=== PATIENT | male | born 1960 | race Caucasian/White ===

== ENCOUNTER 2020-11-08 11:39 | Inpatient (IN) | payer MEDICARE, SELFPAY ==
[2020-11-08 11:47] VITALS: BP 144/92; PULSE 78; RESP 18; TEMP 37.1; O2SAT 97; BMI 22.5
--- NOTE | 2020-11-08 11:53 | ECG_ITS ---
[facility] Test Date: 2020-11-08 Pat Name: Jomar Espinoza Department: Room: 151 Gender: Male Director Of Contracts: : 1960 Requested By: Jose Mckeon Order Number: [id number] Mukesh MD: FANNY TOWNSEND Measurements Intervals [place] Rate: 84 P: 83 TX: 173 QRS: 27 QRSD: 101 T: 72 QT: 349 QTc: 415 Interpretive Statements SINUS RHYTHM POSSIBLE LEFT ATRIAL ENLARGEMENT [-0.1mV P WAVE IN V1/V2] POSSIBLE LEFT VENTRICULAR HYPERTROPHY [VOLTAGE CRITERIA PLUS LAE OR QRS WIDENING] POSSIBLE LATERAL MYOCARDIAL INFARCTION [30 ms Q WAVE IN I/aVL/V5/V6], OF INDETERMINATE AGE No previous ECG available for comparison Electronically Signed On 11-08-2020 20:12:21 CDT by FANNY TOWNSEND [id number]
--- NOTE | 2020-11-08 11:54 | ED_ITS ---
HPI - General Adult General: Chief complaint: Psychiatric Symptoms Stated complaint: 96 hr hold Time Seen by Provider: 11/08/20 11:49 History of Present Illness: HPI narrative: This patient is a 59-year-old male who presents to the emergency department from [facility] with paperwork from the court for a 96-hour hold. Reportedly this [place] [address] [place] police officers when he was walking along the side [place] [address] stating that he hoped to be get run over by vehicle. Stated that he needed to go to psychological facility before he does something bad to himself or someone else. Stated he did not want to live anymore. Is been noted that he has been in the previously long term system in [facility] at that time he attempted to hang himself with a bed sheet. He stated multiple times he did not want to live anymore. Patient states that he has a history of rapid cycling bipolar disorder. Admits that he uses marijuana daily. States he is homeless. Patient states he does not want to live anymore and that he will follow through on his threats. 96-hour hold paperwork has been signed. And was presented to the emergency department here for medical screening exam. During his arrest with the officers patient tried to have the police inspector shoot him upon arrest he also attempted to hang himself as stated above. Will do medical evaluation treat as needed. Onset (ago): day(s) Associated symptoms: Deny chest pain, dyspnea, headache(s), nausea, rash, palpitations or vomiting Review of Systems General: Reports: 10 or more systems reviewed and unremarkable except in HPI and below Const: Denies: fever(s), chills, body aches or fatigue Eyes: Denies: change in vision or blurry vision ENMT: Denies: throat pain, hoarseness or mouth pain Card: Denies: chest pain, palpitations, irregular heart rhythm, edema, swelling of feet/ankles or lightheadedness Resp: Denies: dyspnea, productive cough, non-productive cough, wheezing or pain on inspiration GI: Denies: abdominal pain, nausea or vomiting : Denies: flank pain, dysuria, urinary frequency, urinary urgency or urinary hesitancy Musc: Denies: neck pain, back pain, extremity pain, extremity swelling, joint pain, joint swelling, joint redness, joint warmth or limited range of motion Skin/Breast: Denies: rash, pruritus, erythema or skin tenderness Neuro: Denies: headache(s), numbness in extremities or weakness in extremities Psych: Reports: depression and suicidal ideation; Denies: anxiety Physical Exam Const: COMMON NORMALS: no acute distress, average body habitus, patient oriented x3, no limitations, healthy appearing, alert and well nourished HENMT: COMMON NORMALS: normocephalic, atraumatic, hearing grossly normal bilaterally, external ears normal, EAC's normal, TM's normal bilaterally, Normal external nose present, Normal nasal mucous membranes and turbinates present, moist oral mucous membranes, oropharynx normal, dentition normal and gingiva normal HEAD & SCALP: normocephalic and atraumatic NOSE: Normal external no se present and Normal nasal mucous membranes and turbinates present EXTERNAL EAR: Yes external ears normal EXTERNAL AUDITORY CANAL: EAC's normal TYMPANIC MEMBRANE: TM's normal bilaterally Neck/C-Spine: COMMON NORMALS: full ROM, no lymphadenopathy, supple, no meningeal signs, no JVD, Thyroid normal and No carotid bruits THYROID: Thyroid normal Chest: COMMONS NORMALS: normal inspection of the chest, normal palpation of entire chest wall, normal inspection of the breasts and normal palpation of the breasts Breast/axilla inspection: Yes normal inspection of the breasts BREAST/AXILLA PALPATION: Yes normal palpation of the breasts Resp: COMMON NORMALS: normal respiratory effort, No retractions, No use of accessory muscles, clear to auscultation bilaterally and percussion normal AUSCULTATION: clear to auscultation bilaterally PERCUSSION: percussion normal Cardio: COMMON NORMALS: no JVD, regular rate, regular rhythm, S1 normal heart sound present, S2 normal heart sound present, No gallops present (Cardio), No clicks present (Cardio), No murmurs present (Cardio), No rub (Cardio) and Perip heral pulses 2+ throughout RATE: regular rate RHYTHM: regular rhythm HEART SOUNDS: S1 normal heart sound present and S2 normal heart sound present PERIPHERAL PULSES: Peripheral pulses 2+ throughout GI: COMMON NORMALS: Normal to inspection, nondistended, normoactive bowel sounds present, Soft to palpation, non-tender, No hepatosplenomegaly present, no masses and no bruits PALPATION: Yes Soft to palpation and Yes No hepatosplenomegaly present : COMMON NORMALS: Yes no CVA tenderness BLADDER/KIDNEY EXAM: Yes no CVA tenderness Back/Pelvis: COMMON NORMALS: no CVA tenderness, thoracic and lumbar spine normal to inspection, no thoracic nor lumbar tenderness, thoraco-lumbar ROM normal and straight leg raise negative bilaterally Extremity: COMMON NORMALS: normal to inspection, full ROM, capillary refill normal, no joint enlargement, no clubbing, cyanosis or edema, no calf tenderness and no pedal edema Neuro: COMMON NORMALS: patient oriented x3 SENSORIUM/ORIENTATION: Yes alert MENINGEAL SIGNS: Yes no meningeal signs Psych: COMMON NORMALS: mental status grossly normal THOUGHT CONTENT: Yes Suicidality present Course Reevaluation(s): Reevaluation #1: Patient complained of abdominal cramping apparently nursing staff is found Pepto-Bismol in his belongings patient missed that he had drank half a bottle. Will do medical evaluation treat as needed Time: 12:26 Consultations: Consultation #1: I did discuss at great length with Dr. Romero psychiatry he is accepted this patient for admission. Time: 12:42 Vital Signs: Vital signs: Vital Signs Temperature 98.7 F 11/08/20 11:47 Pulse Rate 78 11/08/20 11:47 Respiratory Rate 18 11/08/20 11:47 Blood Pressure 144/92 11/08/20 11:47 Pulse Oximetry 97 11/08/20 11:47 MDM - General Adult MDM Narrative: Medical decision making narrative: This patient is a 59-year-old male who presents to the emergency department from [facility] with paperwork from the court for a 96-hour hold. Reportedly this [place] [address] [place] [address] officers when he was walking along the side [place] [address] stating that he hoped to be get run over by vehicle. Stated that he needed to go to psychological facility before he does something bad to himself or someone else. Stated he did not want to live anymore. Is been noted that he has been in the previously long term system in [facility] at that time he attempted to hang himself with a bed sheet. He stated multiple times he did not want to live anymore. Patient states that he has a history of rapid cycling bipolar disorder. Admits that he uses marijuana daily. States he is homeless. Patient states he does not want to live anymore and that he will follow through on his threats. 96-hour hold paperwork has been signed. And was presented to the emergency department here for medical screening exam. During his arrest with the officers patient tried to have the police inspector shoot him upon arrest he also attempted to hang himself as stated above. I did discuss at great length with Dr. Romero psychiatry he is accepted this patient for admission. Medical Records: Attestation: I reviewed the patient's medical records. Lab Data: Attestation: I reviewed the patient's lab results. Labs: Lab Results 11/08/20 11/08/20 Range/Units 12:25 12:25 WBC 10.4 H (4.0-10.0) 10^3/ uL RBC 4.88 (4.1-5.3) 10^6/u L Hgb 14.4 (11.7-16.6) g/dL Hct 42.3 (42.0-52.0) % MCV 86.7 (80-94) fL MCH 29.5 (28.0-34.0) pg MCHC 34.0 (30.0-36.0) g/dL RDW 12.9 (12.1-15.1) % Plt Count 270 (130-400) 10^3/c mm MPV 11.3 H (7.4-10.4) fL Neut % (Auto) 77.9 % Lymph % (Auto) 13.8 % [place] % (Auto) 7.7 % Eos % (Auto) 0.2 % Baso % (Auto) 0.2 % Neut # (Auto) 8.06 H (1.8-7.7) 10^3/u L Lymph # (Auto) 1.4 (0.8-4.8) 10^3/u L [place] # (Auto) 0.8 (0.2-0.9) 10^3/u L Eos # (Auto) 0.0 (0.0-0.8) 10^3/u L Baso # (Auto) 0.0 (0.0-0.1) 10^3/u L Nucleated RBC % (a uto) 0 % Nucleated RBCs # 0.0 /100WBC Sodium 141 (136-145) mmol/L Potassium 4.3 (3.5-5.1) mmol/L Chloride 104 (98-107) mmol/L Carbon Dioxide 20 L (22-29) mmol/L Anion Gap 21.3 H (5-19) BUN 20 (6-20) mg/dL Creatinine 0.7 (0.7-1.2) mg/dL GFR Calculation 115.8 (90-130) mL/min Glucose 117 H (65-115) mg/dL Calculated Osmolal ity 296 H (285-295) mOsm/k g Calcium 9.6 (8.5-10.5) mg/dL Total Bilirubin 0.4 (0.15-1.2) mg/dL AST 40 (0-40) U/L ALT 19 (0-41) U/L Alkaline Phosphata se 101 (40-130) IU/L Total Protein 7.4 (6.6-8.7) g/dL Albumin 5.2 (3.5-5.2) g/dL Globulin 2.2 (1.3-4.6) g/dL Salicylates 8.9 (3-10) mg/dL Acetaminophen < 5.0 L (10-30) ug/mL Ethyl Alcohol < 10 (0-10) mg/dL Imaging Data^: KUB: Attestation: I personally reviewed and interpreted this imaging study as follows: Radiologist's impression: IMPRESSION: 1. No acute GI abnormalities. 2. Multiple metallic bart are seen in the central abdomen. 3. Metallic surgical clips right upper quadrant and left epigastric region 4. Metallic arthroplasty left hip in good position EKG Data^: EKG 1: Attestation: I personally reviewed and interpreted this EKG as follows: EKG interpretation date: 11/08/20 EKG interpretation time: 12:18 Interpretation: EKG has quite a bit of artifact due to the patient not wanting to sit still. Otherwise sinus rhythm heart rate 84. Computer generated interpretation: Abdomen X-Ray 11/08/20 13:17 IMPRESSION: 1. No acute GI abnormalities. 2. Multiple metallic bart are seen in the central abdomen. 3. Metallic surgical clips right upper quadrant and left epigastric region 4. Metallic arthroplasty left hip in good position Discharge Plan Discharge Patient Disposition: Admitted As Inpatient Admit Provider: Teresa Romero Clinical Impression: Suicidal ideation Condition: Stable Coding Level of Care Code ED Senior Manager for Chg Fwd Exam Comprehensive
[2020-11-08 12:34] LABS: Basophils % 0.2 %; Eosinophils % 0.2 %; Hematocrit 42.3 % (42.0-52.0); Hemoglobin 14.4 g/dL (11.7-16.6); Lymphocytes # 1.4 10^3/uL (0.8-4.8); Lymphocytes % 13.8 %; Mean Corpuscular Hemoglobin 29.5 pg (28.0-34.0); Mean Corpuscular Volume 86.7 fL (80-94); Mean Platelet Volume 11.3 fL (7.4-10.4); Monocytes # 0.8 10^3/uL (0.2-0.9); Monocytes % 7.7 %; Neutrophils # 8.06 10^3/uL (1.8-7.7); Neutrophils % 77.9 %; Nucleated Red Blood Cells % 0 %; Platelet Count 270 10^3/cmm (130-400); Red Blood Count 4.88 10^6/uL (4.1-5.3); Red Cell Distribution Width 12.9 % (12.1-15.1); White Blood Count 10.4 10^3/uL (4.0-10.0)
[2020-11-08 12:49] LABS: Alanine Aminotransferase 19 U/L (0-41); Albumin Level 5.2 g/dL (3.5-5.2); Alkaline Phosphatase 101 IU/L (40-130); Anion Gap 21.3 (5-19); Aspartate Amino Transferase 40 U/L (0-40); Blood Urea Nitrogen 20 mg/dL (6-20); Calcium 9.6 mg/dL (8.5-10.5); Carbon Dioxide 20 mmol/L (22-29); Chloride 104 mmol/L (98-107); Globulin 2.2 g/dL (1.3-4.6); Glomerular Filtration Rate 115.8 mL/min (90-130); Glucose 117 mg/dL (65-115); Osmolality Calculated 296 mOsm/kg (285-295); Potassium 4.3 mmol/L (3.5-5.1); Salicylate 8.9 mg/dL (3-10); Sodium 141 mmol/L (136-145); Total Bilirubin 0.4 mg/dL (0.15-1.2); Total Protein 7.4 g/dL (6.6-8.7)
[2020-11-08 12:50] LABS: Acetaminophen < 5.0 ug/mL (10-30); Alcohol Level < 10 mg/dL (0-10)
--- NOTE | 2020-11-08 13:17 | XRR_ITS ---
PROCEDURE INFORMATION: Exam: XR Abdomen Exam date and time: 11/08/2020 1:17 PM Age: 59 years old Clinical indication: Abdominal pain; Generalized; Additional info: Abd pain TECHNIQUE: Imaging protocol: XR of the abdomen. Views: 2 Views. Upright and supine views. COMPARISON: No relevant prior studies available. FINDINGS: Gastrointestinal tract: Normal. No bowel dilation. Numerous metallic bart are seen in the central portion of the abdomen in a somewhat circumscribed pattern. Intraperitoneal space: There is metallic surgical clips in the right upper quadrant and in the epigastric region. Bones/joints: Metallic arthroplasty is seen in the left hip in good position. Soft tissues: Of larger circumscribed metallic densities seen in the lower chest bilaterally Other findings: Comparison to prior examination similar findings is seen XR/XR abdomen min 2V [id number] IMPRESSION: 1. No acute GI abnormalities. 2. Multiple metallic bart are seen in the central abdomen. 3. Metallic surgical clips right upper quadrant and left epigastric region 4. Metallic arthroplasty left hip in good position
[2020-11-08 14:13] LABS: Urine Appearance Clear (CLEAR); Urine Color Yellow (Yellow)
[2020-11-08 14:14] LABS: Add Urine Microscopic? YES; Bacteria Urine 1+ /hpf; Bilirubin Urine 1+ (Negative); Blood Urine 3+ (Negative); Glucose Urine UA Norm (Normal); Ketones Urine 2+ (Negative); Leukocyte Esterase Urine Negative (Negative); Mucus Urine 4+ /hpf; Nitrate Urine Negative (Negative); Protein Urine 1+ (Negative); Urobilinogen Urine Norm (Negative); pH Urine 5 (5-7)
[2020-11-08 14:16] LABS: Add Urine Culture? No; RBC Urine 0-4 /hpf (0-2); Squamous Epithelial Cell Urine 0-4 /hpf (0-5); WBC Urine 0-4 /hpf (0-5)
[2020-11-08 14:16] LABS: Amphetamines Screen Urine Negative (Negative); Barbiturates Screen Urine Negative (Negative); Benzodiazepines Screen Urine Positive (Negative); Cocaine Screen Urine Negative (Negative); Opiate Screen Urine Negative (Negative); PCP Screen Urine Negative (Negative); THC Screen Urine Positive (Negative)
[2020-11-08 14:33] VITALS: BP 138/82; PULSE 76; RESP 16; TEMP 36.6; O2SAT 94
[2020-11-08 14:39] VITALS: RESP 18; TEMP 37.1; O2SAT 97
--- NOTE | 2020-11-08 15:30 | PC.NURSE ---
Admit note Patient is a 59 year old male that presents to the ER for a 96 hour hold, Per affidavit patient was found walking [place] [address] stating that he was hoping someone would run him over, patient then stated that if police officers were going to arrest him that they would have to shoot him. Patient was arrested and taken to the [facility], while in usp patient attempted to hang himself with a bed sheet. Patient was brought here for evaluation. During admission patient is sitting on the bed, rocking back and forth holding his abdomen. Patient stated that he has been having severe abdominal pain and diarrhea today. Per ER staff patient had a empty bottle of pepto bismul on his bed and they believe he may have ingested the whole bottle. Patient is pleasant with nursing staff with nursing staff. Patient denies drug use but stated that he smokes pot.
--- NOTE | 2020-11-08 15:41 | PC.NURSE ---
Patient has two nipple rings in place, along with a large ring in his penis.
[2020-11-08] MEDS: ondansetron 4 MG Tablet PO (16:09)
[2020-11-08] MEDS: loperamide 2 mg Capsule PO (16:10)
--- NOTE | 2020-11-08 17:33 | PC.NURSE ---
Patient Hemant's number [phone]
[2020-11-08] MEDS: citalopram 20 mg Tablet 10 MG PO (18:05)
--- NOTE | 2020-11-08 18:11 | PC.NURSE ---
Patient very reluctant when given the new medication that was prescribed. Patient voiced that antidepressants do not work for patients that Bipolar 1. Patient explained that changing the medication on him and putting him of citalopram instead of his other medication is not safe because the medication does not work together. RN explained to the patient that the provider would not precribe him something that was unsafe for him to take. Patient also stated that he would not take another dose until he speaks with the provider. Patient stated I am on medications that work for me and that I will not change them and if you change them here I am going to go back to my other medications at home . Patient is currently speaking with his concerning the medication changes and is frustrated that the provider changed them. Patient also stated that they reason he had a manic episode is due to the fact that he has not been taking his medications as he is supposed to. Patient stopped taking the medication because he thought he was doing better and stopped his medication.
[2020-11-08] MEDS: ibuprofen 800 mg tablet PO (20:02)
[2020-11-08 20:53] VITALS: BP 170/83; PULSE 90; RESP 15; TEMP 36.4; O2SAT 98
--- NOTE | 2020-11-08 22:00 | PC.NURSE ---
Home Medications Called Significant other, Hemant at [phone], stated has been seeing Dr. Boyle and Dr. Elena. Equatro, Valium, Seroquel prescribed by Dr. Elena, and filled at [facility] in [place] All other home medications are filled at [facility] Medications Equatro 400mg PO BID-must have name brand, the name generic doesn't work, Valium 5-10mg po, unsure of frequency. EC Aspirin Famatodine 20mg PO daily b12 chewable Lizbeth 180mg PO daily Seroguel 125mg PO at bedtime
--- NOTE | 2020-11-08 22:20 | PC.NURSE ---
Home Medications Called Significant other, Hemant at [phone]
[2020-11-08] MEDS: hyDROXYzine 25 mg Capsule 50 MG PO (23:43)
[2020-11-08] MEDS: trazodone 50 mg Tablet PO (23:43)
[2020-11-08] MEDS: acetaminophen 325 mg Tablet 650 MG PO (23:43)
--- NOTE | 2020-11-08 23:51 | PC.NURSE ---
PRN's Vistaril 50mg PO- given for anxiety tylenol 650mg PO-given for headache rated 4-5, on 1-10 pain scale trazodone 50mg PO- for sleep, pt is anxious and is used to taking meds to sleep
[2020-11-09] MEDS: ibuprofen 800 mg tablet PO ×3 (04:48→21:43)
--- NOTE | 2020-11-09 05:27 | PC.NURSE ---
PM Assessment Pt is nervous about taking Celexa because a previous psychiatrist told him that he should not take anti-psychotic meds. He claims his meds have worked for him the last 4 years and would like them restarted here. Sees Dr Elena and Dr Boyle in [place]. Stated he has a daughter 33, son 32, one and the 14th his son would have been 24 that committed suicide, 20 yr old son, and a 18 year old son that is leaving for the . He is proud of this son joining [employer] to be an MP. Spoke of his , and her sudden . Pt states, Im just stressed out. Pt speaks highly of Hemant, his significant other, and how well she cares for him. They have been together since 2014. He says he has prior diagnosis of Bipolar type 1. Pt is nervous, anxious, and pacing. Offered Vistaril/ Trazodone. Medication is reconciled. Pt feels like his kids are older and now they do not need him. Pt uses walking as a coping mechanism.
--- NOTE | 2020-11-09 05:45 | PC.NURSE ---
Trazodone hangover pt refuses to take it anymore. Left pt with a headache and he does not want to take it anymore.
[2020-11-09 06:00] VITALS: BP 133/88; PULSE 71; RESP 17; TEMP 36; O2SAT 95
[2020-11-09] MEDS: citalopram 20 mg Tablet PO (09:00)
[2020-11-09] MEDS: aspirin 81 mg EC Tablet PO (09:12)
[2020-11-09] MEDS: fexofenadine 60 mg Tablet 180 MG PO (09:12)
[2020-11-09] MEDS: famotidine 20 mg Tablet PO (09:12)
--- NOTE | 2020-11-09 09:49 | P.HP_ITS ---
Providers/Chief Complaint Admitting Physician: Teresa Romero DO Chief Complaint: 96 hr hold HPI NPU History of Present Illness Jomar Espinoza is a 59 year old male reports longstanding history of bipolar d isorder and states that he had stopped taking his medication for several days leading to an event in which he was acting bizarrely and was endorsing suicidal ideation and demonstrating suicidal behavior to include attempting to hang himself while in a long term. Patient reports that he has a past history of rapid cycling bipolar disorder which has been stable on his current home medication to include carbamazepine 400 mg twice daily. He currently denies any manic symptoms. Patient reports past depressive symptoms but currently denies any depressive symptoms, denies any suicidal ideation or thoughts about self-harm and reports no past history of suicide attempts. Patient denies any psychotic symptoms. Psychiatric review of systems is otherwise negative. Patient denies use of any other illicit substances but states that he does a 1 hitter of marijuana 3 times daily before work, at lunch, and after work for pain. Patient states that he sees a psychiatrist every 3 months and is due for his next psychiatric appointment sometime this month. Patient reports living with his and working at a [employer]. Review of Systems General: Reports: 10 or more systems reviewed and unremarkable except in HPI and below Meds NPU Home Medications Medication Instructions Recorded Confirmed Last Taken Type aspirin 81 mg PO DAILY 11/08/20 11/08/20 11/07/20 09:00 History carbamazepine (mood stabiliz) 400 mg PO BID 11/08/20 11/08/20 11/07/20 09:00 History [Equetro] diazepam [Valium] 5 mg PO BID PRN 11/08/20 11/08/20 Unknown History famotidine 20 mg PO DAILY 11/08/20 11/08/20 11/07/20 09:00 History fexofenadine 180 mg PO DAILY 11/08/20 11/08/20 11/07/20 09:00 History ibuprofen 800 mg PO TID PRN 11/08/20 11/08/20 Unknown History sumatriptan succinate 100 mg PO Q2H PRN 11/08/20 11/08/20 Unknown History quetiapine [Seroquel] 125 mg PO BEDTIME 11/09/20 11/09/20 Unknown History Allergies Allergy/AdvReac Type Severity Reaction Status Date / Time No Known Allergies Allergy Verified 11/08/20 15:42 [facility] NPU Other Psychiatric History: Other Psychiatric History: Reports longstanding psychiatric issues, currently stabilized on his current regimen, sees kevin pickard every 3 months in [place] Reports last psychiatric hospitalization was 6 years ago Denies any history of suicide attempts or self-harm behavior Mental Status Exam MSE Comments: Appears significantly older than stated age, multiple tattoos on exposed skin on his neck and arms, appropriately dressed and groomed, calm, cooperative, good eye contact Psychomotor activity is neither increased nor decreased, no agitation Speech is low volume, normal rate, spontaneous, fair articulation, not pressured I feel okay, full range of affect, not labile Alert, oriented to person, place, time, situation Memory and concentration appear to be intact per interview Intellectual functioning appears to be average based on vocabulary, interview Thought process, linear, no flight of ideas, no looseness of associations Thought content, no delusions, no hallucinations, no suicidal or homicidal ideation Insight and judgment appear to be intact Vitals/I&O/Wt Last Vital Signs Temp 96.8 F L 11/09/20 06:00 Pulse 71 11/09/20 06:00 Resp 17 11/09/20 06:00 BP 133/88 11/09/20 06:00 Pulse Ox 95 11/09/20 06:00 Weight last 48 hrs Weight 81.647 kg Data NPU : 11/08/20 12:25 11/08/20 12:25 A&P Assessment and plan (1) Suicidal ideation: Status: Acute (2) Depressive disorder: Status: Acute Additional A&P Information Patient with history of bipolar disorder presenting to the emergency department after being off of his medication for several days as well as interaction with police during which time he tried to hang himself while in long term, currently euthymic and denying any symptoms, no suicidal ideation, no psychotic symptoms. Patient reports daily marijuana use. INVOLUNTARY ADMIT to inpatient psychiatry RESTART home medication Encouraged patient to participate in unit activities to clean group sessions, unit milieu Coordinate with social media sr strategy manager for post discharge follow-up with psychiatrist Involuntary Hold Information 96 Hour Hold: 96 Hour Involuntary Admission: Yes 96 Hour Hold Ending Date: 11/14/20 96 Hour Hold Ending Time: 11:39 Attestations NPU Medical Necessity Statement*: Psychiatric hospitalization is indicated for medication stabilization, coordination for safe discharge Anticipate hospital stay to exceed 2 midnights Time Spent in Patient Care: Greater than 35 minutes (>than 50% of time spent in counselling and/or direct pt care on unit) . Coding Level of Care Code Acute Historic Site Administrator for Cristiane Fwd Diagnoses Suicidal ideation R45.851 Depressive disorder F32.9
[2020-11-09] MEDS: carBAMazepine XR (12 HR) 200 mg Tablet 400 MG PO ×2 (11:08→21:39)
[2020-11-09] MEDS: acetaminophen 325 mg Tablet 650 MG PO (11:10)
[2020-11-09 11:11] LABS: Carbamazepine Tegretol 4.1 ug/mL (4.0-12.0)
--- NOTE | 2020-11-09 11:12 | PC.NURSE ---
prn 1110 administered tylenol 650mg for pt c/o headache 6/10 on pain scale. will continue to monitor pt until end of shift.
[2020-11-09 14:00] VITALS: BP 146/70; PULSE 72; RESP 17; TEMP 38; O2SAT 97
[2020-11-09 17:18] VITALS: PULSE 71
--- NOTE | 2020-11-09 17:26 | ECG_ITS ---
[facility] Test Date: 2020-11-09 Pat Name: Jomar Espinoza Department: Room: 151 Gender: Male Credit Advisor: : 1960 Requested By: Dilan Marquez Order Number: [id number] Mukesh MD: Ana Webb M.D. Measurements Intervals [place] Rate: 69 P: 60 VT: 167 QRS: -13 QRSD: 97 T: 56 QT: 388 QTc: 418 Interpretive Statements SINUS RHYTHM VOLTAGE CRITERIA FOR LVH [MEETS CRITERIA IN ONE OF: R(aVL), S(V1), R(V5), R(V5/V6)+S(V1)] Compared to ECG 11/08/2020 12:18:26 Myocardial infarct finding no longer present Electronically Signed On 11-09-2020 22:54:43 CDT by Ana Webb M.D. [id number]
[2020-11-09] MEDS: OLANZapine 5 mg ODT PO (17:41)
--- NOTE | 2020-11-09 17:44 | PC.NURSE ---
Around 1724 patient was on the phone speaking with his family, patient clenched his chest and was having some difficulty breathing. Patient stated I'm not sure what is wrong, my chest hurts . Patient was instructed to go to his room, and sit on his bed. Patient went to room and was sitting on the edge of the bed, clenching his chest and rocking back and forth. vital signs taken blood pressure 164/105, heart rate 78, oxygen saturation 97% on room air, 98.[address] Romero, was instructed to consult the hospitalist and obtain a EKG. Consulted Dr. Marquez due to the patients chest pain. Was instructed to get EKG, and place orders for troponin series. EKG noted sinus rhythm on EKG heart rate 71. Lab drawn baseline troponin that is currently pending. Patient is resting on the bed holding his chest.
[2020-11-09 18:28] LABS: Troponin(5th) Baseline 10 ng/L (0-15)
[2020-11-09 20:11] LABS: Troponin 5 2HR 9.82 ng/L (0-15)
[2020-11-09 20:12] LABS: Troponin 5 2HR Delta -0.18 ABS# (0-10)
[2020-11-09] MEDS: quetiapine 100 mg Tablet PO (21:41)
[2020-11-09] MEDS: quetiapine 25 mg Tablet PO (21:41)
--- NOTE | 2020-11-09 21:46 | PC.NURSE ---
PM assessment Pt is mildly anxious regarding his medication. He is used to taking a capsule form of Equatro vs the Carbamazapine ER. Called the Pharmacist Kole, who put pt's mind at ease regarding formulary.Pt states, I pay $500 month for this because it works and I need it. Financially this is hard on us. Provided pt with application for financial assistance for this medication from the ginner helper. Pt states he has a headache, provided tylenol. Pt denies SI/HI, Denies AH/VH. pt is not anxious at this time. He is resting in his bed.
[2020-11-09 22:00] VITALS: BP 127/85; PULSE 67; RESP 17; TEMP 36.8; O2SAT 96
--- NOTE | 2020-11-09 23:26 | ECG_ITS ---
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 Measurements Intervals [place] Rate: 62 P: 53 WA: 180 QRS: -20 QRSD: 91 T: 56 QT: 385 QTc: 394 Interpretive Statements SINUS RHYTHM POSSIBLE RIGHT VENTRICULAR CONDUCTION DELAY [RSR (QR) IN V1/V2] Compared to ECG 11/09/2020 17:34:08 Left ventricular hypertrophy no longer present Electronically Signed On 11-11-2020 6:39:46 CDT by Marilee Ramos M.D. [id number]
[2020-11-10 00:28] LABS: Troponin 5 6HR 12.48 ng/L (0-15); Troponin 5 6HR Delta 2.48 ng/L (0-12)
[2020-11-10 06:00] VITALS: BP 144/88; PULSE 88; RESP 18; TEMP 36.5; O2SAT 95
[2020-11-10] MEDS: ibuprofen 800 mg tablet PO (07:21)
[2020-11-10] MEDS: famotidine 20 mg Tablet PO (09:07)
[2020-11-10] MEDS: fexofenadine 60 mg Tablet 180 MG PO (09:07)
[2020-11-10] MEDS: carBAMazepine XR (12 HR) 200 mg Tablet 400 MG PO (09:07)
[2020-11-10] MEDS: aspirin 81 mg EC Tablet PO (09:08)
--- NOTE | 2020-11-10 09:26 | P.DS_ITS ---
Diagnoses at Discharge Discharge Diagnosis (1) Suicidal ideation: Status: Acute (2) Depressive disorder: Status: Acute Reason for Visit Reason for Visit: 96 hr hold Hospital Course Hospital Course 59 year old male with longstanding history of bipolar disorder and states that he had stopped taking his medication for several days leading to an event in which he was acting bizarrely and was endorsing suicidal ideation and demonstrating suicidal behavior to include attempting to hang himself while in a [place] [facility]. At the time of initial evaluation patient was completely organized in his thoughts, linear and goal-directed and was not acting bizarrely. He was no longer endorsing any suicidal ideation but does report that he was having some recent depressive symptoms for unclear reasons. Patient does affirm that he was walking down the road and had suicidal thoughts and states that he had been off of medication although his had provided collateral to staff saying that he had been compliant with medication. It is unclear if this represented an interaction with his usual use of marijuana or interactions of [id number] medications or dehydration versus breakthrough mood symptoms but patient quickly reconstituted while off of medication. Patient was restarted on his home medication after discussion about possible changes and patient's desire to follow-up with his outpatient psychiatrist on his current medication regimen which he states has helped with mood stabilization. Patient participate in unit milieu and was pleasant and appropriate with no reports of any behavioral disturbances. Patient was not suicidal and was not endorsing any psychiatric symptoms at the time of discharge and did not appear to pose an imminent threat of harm to self or others. Low to moderate risk of harm to self given no current suicidal ideation and no current endorsement of any psychiatric symptoms although patient's risk may be elevated if he continues to use substances or is noncompliant with his medication leading to potential unexpected, impulsive behavior. Risk mitigation included psychiatric hospitalization, medication stabilization which involved restarting home medication, recommendation to abstain from the use of substances as well as need for ongoing compliance with his medication and medication management follow-up. Patient was able to communicate his understanding of the need to abstain from the use of substances although he reports that he will continue to do his 1 hitter of marijuana 3 times a day for his chronic pain as well as his understanding of the need for compliance with his medication and medication management follow-up in order to further mitigate his risk of harm to self and others. Involuntary Hold Information 96 Hour Hold: 96 Hour Involuntary Admission: Yes 96 Hour Hold Ending Date: 11/14/20 96 Hour Hold Ending Time: 11:39 Mental Status Exam MSE Comments: Sitting in the day room, appropriately groomed and dressed, calm, cooperative, polite and interactive, appears significantly older than stated age, good eye contact Psychomotor activity is neither increased nor decreased, no agitation Speech is normal volume, normal rate, spontaneous, clear articulation, not pressured I feel pretty good, full range of affect, not labile Alert, oriented to person, place, time, situation Memory and concentration appear to be intact per interview Thought process, linear, no flight of ideas, no looseness of associations Thought content, no delusions, no hallucinations, not appear to be attending to any internal stimuli, no suicidal or homicidal ideation Insight and judgment appear to be intact Discharge Data Data Completed and Pending: Completed Studies During Hospitalization Category Date Time Status XR abdomen min 2V [id number] Stat Exams 11/08/20 13:17 Completed Labs from last 24 hours 11/09/20 11/09/20 11/09/20 23:40 19:36 17:40 Troponin T Baselin e 10 Troponin T 120 Min wiyot 9.82 Delta Troponin T -0.18 L Troponin T Hi Sens 6Hr 12.48 Troponin T Hi Sens 6Hr Delta 2.48 Carbamazepine 11/09/20 10:22 Troponin T Baselin e Troponin T 120 Min wiyot Delta Troponin T Troponin T Hi Sens 6Hr Troponin T Hi Sens 6Hr Delta Carbamazepine 4.1 Vitals: Last Vital Signs Temp 97.7 F 11/10/20 06:00 Pulse 88 11/10/20 06:00 Resp 18 11/10/20 06:00 BP 144/88 11/10/20 06:00 Pulse Ox 95 11/10/20 06:00 Discharge Plan Discharge Patient Disposition: Home Condition: Stable Prescriptions: Continued fexofenadine 180 mg Tablet 180 mg PO DAILY RF: 0 aspirin 81 mg Tablet,Delayed Release (Dr/Ec) 81 mg PO DAILY RF: 0 famotidine 20 mg Tablet 20 mg PO DAILY RF: 0 Equetro 300 mg Capsule, Er Multiphase 12 Hr 400 mg PO BID RF: 0 ibuprofen 800 mg Tablet 800 mg PO TID PRN (Reason: Pain) RF: 0 sumatriptan succinate 100 mg Tablet 100 mg PO Q2H PRN (Reason: Migraine Headache) RF: 0 diazepam [Valium] 5 mg Tablet 5 mg PO BID PRN (Reason: Sleep) RF: 0 Seroquel 200 mg Tablet 125 mg PO BEDTIME RF: 0 Discharge Orders: Discharge Order (Routine); Ordered 11/10/20 Ordered By: Teresa Romero Discharge Diet: Regular Discharge Activity: Resume usual activity Patient Instructions: Opioid Safety Discharge Attestations NPU Time Spent in Discharge Care*: greater than 30 min Status at Discharge: Cognitive status at discharge: cognitively intact , Behavioral status at discharge: cooperative , Functional status at discharge: independent ambulation Overall status at discharge: patient is back to baseline Coding Level of Care Code Acute g FW DC note Diagnoses Suicidal ideation R45.851 Depressive disorder F32.9
[2020-11-10 09:50] VITALS: BP 144/88; PULSE 88; RESP 18; TEMP 36.5; O2SAT 95
== END 2020-11-10 14:31 | disposition home or self-care (01) | DRG 881 ==
LOC: ER 12:43 → NP 13:43
PROVIDERS: Internal Medicine; Admitting Provider Psychiatry & Neurology Psychiatry; Emergency Provider Emergency Medicine; Visit Provider Psychiatry & Neurology Psychiatry
DX: F32.9 Major depressive disorder, single episode, unspecified (principal); R45.851 Suicidal ideations; F12.90 Cannabis use, unspecified, uncomplicated; Z91.19 Patient's noncompliance with other medical treatment and regimen; Z79.82 Long term (current) use of aspirin
CPT/HCPCS: 36415; 74019; 80053; 80156; 80306; 80307; 81001; 84484; 85025; 93005; 99285; Q0162